=== PATIENT | male | born 1945 | race Two or more races ===

== ENCOUNTER 2022-06-01 10:21 | Outpatient (CLI) | payer OTHER | END 2022-06-01 10:48 | disposition home or self-care (01) | LOC: SONOGRAMA 10:21 → RAD 10:21 → SONOGRAMA 10:48 | PROVIDERS: ATTEND Internal Medicine | DX: E04.2 Nontoxic multinodular goiter (principal) ==

== ENCOUNTER 2022-06-21 11:37 | Outpatient (CLI) | payer OTHER | END 2022-06-21 11:52 | disposition home or self-care (01) | LOC: MRI 11:37 | PROVIDERS: ATTEND Internal Medicine | DX: M54.2 Cervicalgia (principal); M54.17 Radiculopathy, lumbosacral region | CPT/HCPCS: 72141; 72148 ==